=== PATIENT | male | born 1950 | race American Indian/Alaskan Native ===

== ENCOUNTER 2020-03-27 22:19 | Emergency (ER) | payer SELFPAY ==
[2020-03-27] MEDS ORDERED: Acetaminophen/HYDROcodone 325-10 MG Tab PO ONE ×2 (22:20→22:43)
--- NOTE | 2020-03-27 22:30 | EDM.PDOC ---
ED [facility] GENERAL MEDICAL PROBLEM - General Chief Complaint: Lower Extremity Injury/Pain Stated Complaint: RT LEG/KNEE PAIN Time Seen by Provider: 03/27/20 22:27 Source of Information: Reports: Patient History Limitations: Reports: No Limitations - History of Present Illness INITIAL COMMENTS - FREE TEXT/NARRATIVE: fell onto right knee tonight Right Knee Pain Score (Numeric/FACES): 7 Left Shoulder Pain Score (Numeric/FACES): 7 - Related Data Allergies Allergy/AdvReac Type Severity Reaction Status Date / Time amoxicillin [From Augmentin] Allergy Diarrhea Verified 03/27/20 22:27 cephalexin [From Keflex] Allergy Itching Verified 03/27/20 22:27 clavulanic acid Allergy Diarrhea Verified 03/27/20 22:27 [From Augmentin] vancomycin Allergy Anaphylactic Verified 03/27/20 22:27 Shock Home Meds: Home Meds . [Unable to Verify Home Med List] 03/27/20 [History] Review of Systems - Review of Systems Review Of Systems: Comprehensive ROS is negative, except as noted in HPI. ED EXAM, GENERAL - Physical Exam Exam: See Below Exam Limited By: No Limitations General Appearance: Alert, WD/WN, Mild Distress, Other (pain) Ears: Hearing Grossly Normal Throat/Mouth: Normal Voice, No Airway Compromise Head: Atraumatic Neck: Non-Tender, Full Range of Motion Respiratory/Chest: No Respiratory Distress Cardiovascular: Regular Rate, Rhythm GI/Abdominal: Soft, Non-Tender Extremities: Other (left shoulder unable to abduct, right knee swollen unable ex tend) Neurological: Alert, Oriented, Normal Cognition, No Motor/Sensory Deficits Psychiatric: Tearful Skin Exam: Warm, Dry, Normal Color Lymphatic: No Adenopathy Course - Vital Signs Last Recorded V/S: Last Vital Signs Temp 36.0 C L 03/27/20 22:36 Pulse 88 03/27/20 22:36 Resp 18 03/27/20 22:36 BP 167/79 H 03/27/20 22:36 Pulse Ox 98 03/27/20 22:36 - Orders/Labs/Meds Meds: Medications Discontinued Medications Generic Name Dose Route Start Last Admin Trade Name Freq PRN Reason Stop Dose Admin Hydrocodone Bitart/Acetaminophen 1 tab 03/27/20 22:43 03/27/20 22:52 [place] 325-10 Mg PO 07/17/20 22:44 1 tab ONETIME ONE Administration - Re-Assessments/Exams Free Text/Narrative Re-Assessment/Exam: 03/27/20 23:38 results discussed with pt Departure - Departure Time of Disposition: 23:39 Disposition: Home, Self-Care 01 Condition: Good Clinical Impression: Patellar fracture Qualifiers: Encounter type: initial encounter Fracture type: closed Fracture morphology: comminuted Fracture alignment: nondisplaced Laterality: right Qualified Code(s): S82.044A - Nondisplaced comminuted fracture of right patella, initial encounter for closed fracture - Discharge Information Instructions: Patellar Fracture, Adult Forms: ED Department Discharge Additional Instructions: 1) wear knee brace and use crutches 2) see clinic Monday for ORTHOPEDIC REFERRAL for fracture patella 3) elevate leg as much as possible rx given vicodin tid to qid prn x 12 Sepsis Event Note (ED) - Focused Exam Vital Signs: Vital Signs Temp Pulse Resp BP Pulse Ox 03/27/20 22:36 36.0 C L 88 18 167/79 H 98
--- NOTE | 2020-03-27 23:17 | CR ---
PROCEDURE INFORMATION: Exam: XR Left Shoulder Exam date and time: 03/27/2020 11:08 PM Age: 69 years old Clinical indication: Other: Fall/pain; Additional info: Fell onto it TECHNIQUE: Imaging protocol: XR Left shoulder. Views: 2 or more views. COMPARISON: No relevant prior studies available. FINDINGS: Bones/joints: No acute fracture or dislocation. There is mild acromioclavicular arthropathy. Soft tissues: Normal. IMPRESSION: No acute fracture or dislocation.
--- NOTE | 2020-03-27 23:19 | CR ---
PROCEDURE INFORMATION: Exam: XR Right Knee Exam date and time: 03/27/2020 11:02 PM Age: 69 years old Clinical indication: Other: Fall/pain; Additional info: Fell onto right knee TECHNIQUE: Imaging protocol: XR Right knee. Views: 3 views. COMPARISON: No relevant prior studies available. FINDINGS: Bones/joints: Suspect a nondisplaced patellar fracture. Severe tricompartmental degenerative joint disease. Soft tissues: Anterior soft tissue swelling. IMPRESSION: 1. Suspect a nondisplaced patellar fracture. 2. Severe tricompartmental degenerative joint disease.
[2020-03-27] MEDS ORDERED: Acetaminophen/HYDROcodone 325-10 MG Tab ONE (23:55)
== END 2020-03-28 00:10 | disposition home or self-care (01) ==
LOC: DL.ED 22:19
DX: S82.044A Nondisplaced comminuted fracture of right patella, initial encounter for closed fracture (principal); Z88.1 Allergy status to other antibiotic agents; W18.30XA Fall on same level, unspecified, initial encounter
CPT/HCPCS: 73030; 73562; 99283; A9270

== ENCOUNTER 2021-08-25 07:28 | Day surgery (SDC) | payer SELFPAY ==
[2021-08-25] MEDS ORDERED: Sodium Chloride 0.9% 10 ML Syringe IV ONE (07:29)
[2021-08-25] MEDS ORDERED: Dexamethasone 4 MG/ML SDV IV ONE (07:29)
[2021-08-25] MEDS ORDERED: Midazolam 1 MG/ML 2 ML SDV IV ONE (07:29)
[2021-08-25] MEDS ORDERED: Tobramycin 0.3% Ophth Drops 5 ML Bottle EYELF ONE (07:30)
[2021-08-25] MEDS ORDERED: Phenylephrine 10% Ophth Soln 5 ML Bot EYELF PRN (07:30)
[2021-08-25] MEDS ORDERED: Sodium Chloride 0.9% 10 ML Syringe FLUSH PRN (07:30)
[2021-08-25] MEDS ORDERED: Acetaminophen 325 MG Tab PO PRN (07:30)
[2021-08-25] MEDS ORDERED: Moxifloxacin 0.5% Ophth Soln 3 ML Bottle EYELF ONE (07:30)
[2021-08-25] MEDS ORDERED: Povidone-Iodine 5% Sterile Ophth Soln 30 ML Bottle EYELF ONE ×2 (07:30→09:03)
[2021-08-25] MEDS ORDERED: Acetaminophen/Codeine 300-30 MG Tab PO PRN (07:30)
[2021-08-25] MEDS ORDERED: Tropicamide 1% Ophth Soln 15 ML Bottle EYELF ONE (07:30)
[2021-08-25] MEDS ORDERED: Proparacaine 0.5% Ophth Soln 15 ML Bottle EYELF ONE (07:30)
[2021-08-25] MEDS ORDERED: Timolol Maleate 0.5% Ophth Soln 5 ML Bottle EYELF ONE (07:30)
[2021-08-25] MEDS ORDERED: Ondansetron 4 MG/2 ML SDV IVPUSH PRN (07:30)
[2021-08-25] MEDS ORDERED: Cataract Ophth Solution EYELF ONE (07:30)
[2021-08-25] MEDS ORDERED: Lidocaine 1% 30 ML SDV ONE (09:01)
[2021-08-25] MEDS ORDERED: Tetracaine HCl/PF 0.5% 4 ML Bottle EYELF ONE (09:01)
[2021-08-25] MEDS ORDERED: Apraclonidine 0.5% Ophth Soln 5 ML Bot EYELF ONE (09:03)
[2021-08-25] MEDS ORDERED: Dexamethasone/Neomycin/Polymyxin B Ophth Oint 3.5 GM Tube EYELF ONE (09:04)
[2021-08-25] MEDS ORDERED: Diclofenac Sodium 0.1% Ophth Soln 5 ML Bottle EYELF ONE (09:04)
[2021-08-25] MEDS ORDERED: Chondroitin Sulfate/Hyaluronate Sodium Ophth Inj 0.75 ML Syringe EYELF ONE (09:05)
[2021-08-25] MEDS ORDERED: Vancomycin 500 MG SDV EYELF ONE (09:05)
[2021-08-25] MEDS ORDERED: Balanced Salt Solution Ophth Irrig 500 ML Bottle IOCULAR ONE (09:05)
--- NOTE | 2021-08-26 08:39 | OR ---
DATE: 08/25/2021 PREOPERATIVE DIAGNOSIS: Visually significant mixed cataract, left eye. POSTOPERATIVE DIAGNOSIS: Visually significant mixed cataract, left eye. PROCEDURE: Extracapsular cataract extraction with intraocular lens implant, left eye. ANESTHESIA: Topical/local MAC. COMPLICATIONS: None. INDICATION: Mr. Gotti was seen in the clinic. He is unhappy with his vision noticing a progressive change. He has difficulty with multiple activities of daily living. 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 Dr. Duval was not able to improve his vision and meet his needs with a change in glasses. I explained options, offered cataract surgery, and I explained risks including the potential for infection, retinal detachment, loss of vision, need for additional surgery, amongst others. We have discussed implant options. He has requested a monofocal implant. He has significant preexisting astigmatism and understands that his visual potential will likely be limited without glasses. He voiced understanding with respect to risks and is motivated to proceed. OPERATIVE DESCRIPTION: After informed consent was obtained and the risks, benefits, and alternatives were explained, the patient was brought to the operative suite and topical anesthesia was administered. The patient was then prepped and draped in the sterile fashion and attention was placed on the left eye. A sterile lid speculum was placed into the left eye to allow operative exposure. A full-thickness paracentesis was made in the temporal portion of the operative eye. Preservative-free lidocaine 0.1 mL was injected into the anterior chamber followed by viscoelastic. A full-thickness corneal incision was then made into the anterior chamber. A bent needle cystotome was used to create a small ofelia in the anterior capsule. The capsulorrhexis forceps was then used to create a 360-degree curvilinear capsulorrhexis. The nucleus was then removed using a phacoemulsification handpiece and the remaining cortical material was then removed with irrigation and aspiration handpiece. Following removal of the cortical material, the capsular bag was then inspected and noted to be free of any holes or tears. Viscoelastic was then injected into the capsular bag and the intraocular lens was inserted into the capsular bag. The viscoelastic material was then removed from both the anterior and posterior chambers and from behind the IOL. The lens and capsular bag were then reinspected. The IOL was well centered and the capsular bag intact. The wound and paracentesis sites were inspected and hydrated with balanced saline solution. Both were found to be self- sealing. The intraocular pressure was assessed digitally and found to be within normal range. A good red reflex was noted at the completion of the procedure. No complications occurred during the operation. At the completion of the procedure, Maxitrol, Voltaren, and Iopidine drops were placed into the operative eye. A sterile eye shield was placed over the operative eye and the patient was transported to the postoperative recovery area having tolerated the procedure well. Postoperative instructions were given along with a postoperative appointment. The patient was advised to call with any questions or concerns. [facility] /[id number]
== END 2021-08-25 10:17 | disposition home or self-care (01) ==
LOC: DL.SDS 07:28
PROVIDERS: ATTEND Ophthalmology
DX: E11.36 Type 2 diabetes mellitus with diabetic cataract (principal); E11.22 Type 2 diabetes mellitus with diabetic chronic kidney disease; E11.319 Type 2 diabetes mellitus with unspecified diabetic retinopathy without macular edema; I12.9 Hypertensive chronic kidney disease with stage 1 through stage 4 chronic kidney disease, or unspecified chronic kidney disease; H26.8 Other specified cataract; N18.9 Chronic kidney disease, unspecified; E55.9 Vitamin D deficiency, unspecified; E66.01 Morbid (severe) obesity due to excess calories; Z79.4 Long term (current) use of insulin; Z68.38 Body mass index [BMI] 38.0-38.9, adult; Z79.899 Other long term (current) drug therapy; Z20.822 Contact with and (suspected) exposure to COVID-19
CPT/HCPCS: 82947; A9270-GY; C1780; J1100; J2250; J3370; U0002

== ENCOUNTER 2021-09-01 07:01 | Day surgery (SDC) | payer SELFPAY ==
[~2021-09-01 07:01] MED LIST: Acetaminophen 325 MG Tab PO PRN; Acetaminophen/Codeine 300-30 MG Tab PO PRN; Cataract Ophth Solution EYERT ONE; Moxifloxacin 0.5% Ophth Soln 3 ML Bottle EYERT ONE; Ondansetron 4 MG/2 ML SDV IVPUSH PRN; Phenylephrine 10% Ophth Soln 5 ML Bot EYERT PRN; Povidone-Iodine 5% Sterile Ophth Soln 30 ML Bottle EYERT ONE; Proparacaine 0.5% Ophth Soln 15 ML Bottle EYERT ONE; Timolol Maleate 0.5% Ophth Soln 5 ML Bottle EYERT ONE; Tobramycin 0.3% Ophth Drops 5 ML Bottle EYELF SCH; Tropicamide 1% Ophth Soln 15 ML Bottle EYERT ONE
[2021-09-01] MEDS ORDERED: Midazolam 1 MG/ML 2 ML SDV IV ONE (07:02)
[2021-09-01] MEDS ORDERED: Sodium Chloride 0.9% 10 ML Syringe IV ONE (07:02)
[2021-09-01] MEDS ORDERED: Dexamethasone 4 MG/ML SDV IV ONE (07:02)
[2021-09-01] MEDS ORDERED: Tetracaine HCl/PF 0.5% 4 ML Bottle EYERT ONE (08:24)
[2021-09-01] MEDS ORDERED: Lidocaine 1% 30 ML SDV ONE (08:25)
[2021-09-01] MEDS ORDERED: Povidone-Iodine 5% Sterile Ophth Soln 30 ML Bottle EYERT ONE (08:25)
[2021-09-01] MEDS ORDERED: Apraclonidine 0.5% Ophth Soln 5 ML Bot EYERT ONE (08:27)
[2021-09-01] MEDS ORDERED: Diclofenac Sodium 0.1% Ophth Soln 5 ML Bottle EYERT ONE (08:27)
[2021-09-01] MEDS ORDERED: Dexamethasone/Neomycin/Polymyxin B Ophth Oint 3.5 GM Tube EYERT ONE (08:28)
[2021-09-01] MEDS ORDERED: Vancomycin 500 MG SDV EYERT ONE (08:29)
[2021-09-01] MEDS ORDERED: Balanced Salt Solution Ophth Irrig 500 ML Bottle IOCULAR ONE (08:29)
[2021-09-01] MEDS ORDERED: Chondroitin Sulfate/Hyaluronate Sodium Ophth Inj 0.75 ML Syringe EYERT ONE (08:29)
--- NOTE | 2021-09-01 11:32 | OR ---
DATE: 09/01/2021 PREOPERATIVE DIAGNOSIS: Visually significant mixed cataract, right eye. POSTOPERATIVE DIAGNOSIS: Visually significant mixed cataract, right eye. PROCEDURE: Extracapsular cataract extraction with intraocular lens implant, right eye. ANESTHESIA: Topical/local MAC. COMPLICATIONS: None. INDICATION: Mr. Gotti was seen in the clinic. He is unhappy with his vision noticing a progressive change. He has difficulty with multiple activities of daily living. Difficulty with bright lights and glare, difficulty with light sensitivity, difficulty with near and distance vision. He saw Dr. Duval. Dr. Duval was not able to improve his vision or meet his visual needs with a change in glasses. I have explained the options, offered cataract surgery, and I explained risks including the potential for infection; retinal detachment; loss of vision; need for additional surgery amongst others. We have discussed implant options. He has requested a monofocal implant. He is comfortable wearing glasses following surgery if necessary. OPERATIVE DESCRIPTION: After informed consent was obtained and the risks, benefits, and alternatives were explained, the patient was brought to the operative suite and topical anesthesia was administered. The patient was then prepped and draped in the sterile fashion and attention was placed on the right eye. A sterile lid speculum was placed into the right eye to allow operative exposure. A full-thickness paracentesis was made in the temporal portion of the operative eye. Preservative-free lidocaine 0.1 mL was injected into the anterior chamber followed by viscoelastic. A full-thickness corneal incision was then made into the anterior chamber. A bent needle cystotome was used to create a small ofelia in the anterior capsule. The capsulorrhexis forceps was then used to create a 360-degree curvilinear capsulorrhexis. The nucleus was then removed using a phacoemulsification handpiece and the remaining cortical material was then removed with irrigation and aspiration handpiece. Following removal of the cortical material, the capsular bag was then inspected and noted to be free of any holes or tears. Viscoelastic was then injected into the capsular bag and the intraocular lens was inserted into the capsular bag. The viscoelastic material was then removed from both the anterior and posterior chambers and from behind the IOL. The lens and capsular bag were then reinspected. The IOL was well centered and the capsular bag intact. The wound and paracentesis sites were inspected and hydrated with balanced saline solution. Both were found to be self- sealing. The intraocular pressure was assessed digitally and found to be within normal range. A good red reflex was noted at the completion of the procedure. No complications occurred during the operation. At the completion of the procedure, Maxitrol, Voltaren, and Iopidine drops were placed into the operative eye. A sterile eye shield was placed over the operative eye and the patient was transported to the postoperative recovery area having tolerated the procedure well. Postoperative instructions were given along with a postoperative appointment. The patient was advised to call with any questions or concerns. [facility] /[id number]
== END 2021-09-01 09:55 | disposition home or self-care (01) ==
LOC: DL.SDS 07:01
PROVIDERS: ATTEND Ophthalmology
DX: E11.36 Type 2 diabetes mellitus with diabetic cataract (principal); H26.8 Other specified cataract; E11.22 Type 2 diabetes mellitus with diabetic chronic kidney disease; I12.9 Hypertensive chronic kidney disease with stage 1 through stage 4 chronic kidney disease, or unspecified chronic kidney disease; E78.5 Hyperlipidemia, unspecified; N18.9 Chronic kidney disease, unspecified; E03.9 Hypothyroidism, unspecified; E55.9 Vitamin D deficiency, unspecified; E66.9 Obesity, unspecified; Z68.38 Body mass index [BMI] 38.0-38.9, adult
CPT/HCPCS: 00142; A9270-GY; J1100; J2250; J3370; V2632

== ENCOUNTER 2022-08-01 16:34 | Emergency (ER) | payer MEDICAID, MEDICARE ==
[2022-08-01 19:04] LABS: ANION GAP 14.6 mEq/L (7-13)
[2022-08-01] MEDS ORDERED: Sodium Chloride 0.9% 1,000 ML IV ONE ×2 (20:05→23:43)
[2022-08-01] MEDS ORDERED: DAPTOmycin 1,000 MG in Sodium Chloride 0.9% 50 ML IV ONE (22:09)
== END 2022-08-01 23:35 | disposition home or self-care (01) ==
LOC: DL.ED 16:34
DX: M86.08 Acute hematogenous osteomyelitis, other sites (principal); E78.00 Pure hypercholesterolemia, unspecified; I10 Essential (primary) hypertension; E11.9 Type 2 diabetes mellitus without complications; E66.9 Obesity, unspecified; Z68.39 Body mass index [BMI] 39.0-39.9, adult; Z88.1 Allergy status to other antibiotic agents; Z79.899 Other long term (current) drug therapy; Z79.82 Long term (current) use of aspirin; Z79.4 Long term (current) use of insulin
CPT/HCPCS: 36415; 73660; 80053; 83605; 85025; 87040; 96361; 96365; 99283; J0878; J7030

== ENCOUNTER 2022-08-06 03:21 | Emergency (ER) | payer MEDICARE ==
[2022-08-06 04:46] LABS: PTT,PARTIAL THROMBOPLSTIN TIME 26.1 SEC (22.0-34.0)
[2022-08-06 04:58] LABS: ANION GAP 15.2 mEq/L (7-13); CHLORIDE,CL 106 mmol/L (98-107); SODIUM,NA 139 mmol/L (136-145)
[2022-08-06 05:02] LABS: ESTIMATED GFR 20 mL/min (>=60)
[2022-08-06] MEDS ORDERED: Sodium Chloride 0.9% 500 ML IV ONE (06:15)
[2022-08-06 06:35] LABS: AMPHETAMINES,URINE NEGATIVE (NEGATIVE); BARBITURATES,URINE NEGATIVE (NEGATIVE); BENZODIAZEPINE,URINE NEGATIVE (NEGATIVE); MDMA (ECSTASY), URINE NEGATIVE (NEGATIVE); METHADONE,URINE NEGATIVE (NEGATIVE); METHAMPHETAMINES,URINE NEGATIVE (NEGATIVE); OPIATES,URINE NEGATIVE (NEGATIVE); OXYCODONE,URINE NEGATIVE (NEGATIVE); PHENCYCLIDINE,URINE NEGATIVE (NEGATIVE); TCA,URINE NEGATIVE (NEGATIVE)
== END 2022-08-06 07:47 | disposition home or self-care (01) ==
LOC: DL.ED 03:21
DX: I12.9 Hypertensive chronic kidney disease with stage 1 through stage 4 chronic kidney disease, or unspecified chronic kidney disease (principal); N18.4 Chronic kidney disease, stage 4 (severe); E78.00 Pure hypercholesterolemia, unspecified; E11.9 Type 2 diabetes mellitus without complications; T36.8X5A Adverse effect of other systemic antibiotics, initial encounter; E66.9 Obesity, unspecified; Z68.38 Body mass index [BMI] 38.0-38.9, adult; Z88.1 Allergy status to other antibiotic agents; Z88.0 Allergy status to penicillin; Z79.899 Other long term (current) drug therapy; Z79.82 Long term (current) use of aspirin; Z79.4 Long term (current) use of insulin
CPT/HCPCS: 36415; 80053; 80305; 80307; 81001; 82272; 82607; 83605; 83735; 84443; 85025; 85610; 85730; 86140; 93005; 96360; 99285; J7030

== ENCOUNTER 2024-09-28 21:45 | Inpatient (IN) | payer MEDICARE, MEDICAID ==
[2024-09-28 23:04] LABS: A/G RATIO 0.75; ALBUMIN 3.3 g/dL (3.4-5.0); ANION GAP 18.3 mEq/L (7-13); BILIRUBIN TOTAL 0.5 mg/dL (0.2-1.0); CALCIUM 8.4 mg/dL (8.5-10.1); CREATININE 2.88 mg/dL (0.70-1.30); EST CRCL DRUG DOSING (CG) 28.09 mL/min; MAGNESIUM 1.4 mg/dL (1.8-2.4); POTASSIUM,K 5.3 mmol/L (3.5-5.1); PROTEIN TOTAL,TP 7.7 g/dL (6.4-8.2)
[2024-09-28 23:14] LABS: PROTHROMBIN TIME 10.4 SEC (9.0-12.0); PTT,PARTIAL THROMBOPLSTIN TIME 19.4 SEC (22.0-34.0)
[2024-09-28] MEDS: Sodium Chloride 0.9% 1,000 ML IV ONE (23:15)
[2024-09-28] MEDS: Magnesium Sulfate/Water Premix 2 GM in Premix Bag 1 BAG IV ONE (23:15)
[2024-09-28 23:18] LABS: BASOPHILS PERCENT AUTO 0.2 % (0.0-1.0); EOSINOPHILS PERCENT AUTO 2.7 % (1.0-3.0); HEMATOCRIT 37.9 % (40.0-54.0); LYMPHOCYTES PERCENT AUTO 6.6 % (20.5-50.1); MEAN CORPUSCULAR HEMOGLOBIN 28.5 pg (27.0-34.0); MEAN CORPUSCULAR HGB CONC 31.7 g/dL (33.0-35.0); MONOCYTES PERCENT AUTO 8.4 % (2-8); NEUTROPHILS PERCENT AUTO 82.1 % (42.2-75.2); PLATELET COUNT,PLT 122 10^3/uL (150-450); RED BLOOD CELL COUNT 4.21 10^6/uL (4.6-6.2)
[2024-09-29] MEDS: Levofloxacin/Dextrose 5%-Water 500 MG in Premix Bag 1 BAG IV ONE (01:19)
[2024-09-29] MEDS ORDERED: Metoprolol Tartrate 5 MG/5 ML SDV IVPUSH PRN (01:45)
[2024-09-29] MEDS ORDERED: hydrALAZINE 20 MG/ML SDV IVPUSH PRN (01:45)
[2024-09-29] MEDS ORDERED: Naloxone 2 MG/2 ML Syringe IVPUSH PRN (01:46)
[2024-09-29] MEDS ORDERED: Sennosides/Docusate Sodium 50-8.6 MG Tab PO PRN (01:46)
[2024-09-29] MEDS ORDERED: HYDROmorphone 1 MG/ML Syringe IVPUSH PRN (01:46)
[2024-09-29] MEDS ORDERED: Magnesium Hydroxide 400 MG/5 ML Susp 30 ML Cup PO PRN (01:46)
[2024-09-29] MEDS ORDERED: Albuterol/Ipratropium 3.0-0.5 MG/3 ML Neb Soln NEB PRN (01:46)
[2024-09-29] MEDS ORDERED: Acetaminophen 325 MG Tab PO PRN ×2 (01:46→02:34)
[2024-09-29] MEDS ORDERED: Ondansetron 4 MG/2 ML SDV IVPUSH PRN (01:46)
[2024-09-29] MEDS ORDERED: Polyethylene Glycol 3350 Powder 17 GM Packet PO PRN (01:46)
[2024-09-29] MEDS ORDERED: Acetaminophen/oxyCODONE 325-5 MG Tab PO PRN (01:46)
[2024-09-29] MEDS ORDERED: Melatonin 3 MG Tab PO PRN (01:46)
[2024-09-29] MEDS ORDERED: guaiFENesin/Dextromethorphan 100-10 MG/5 ML Soln 5 ML Cup PO PRN (01:54)
[2024-09-29] MEDS ORDERED: Glucagon,Human Recombinant 1 MG Vial IM PRN (01:55)
[2024-09-29] MEDS ORDERED: 50% Dextrose in Water 50 ML Syringe IVPUSH PRN (01:55)
[2024-09-29 02:14] LABS: LACTIC ACID 1.7 mmol/L (0.4-2.0)
[2024-09-29] MEDS ORDERED: traMADol 50 MG Tab PO PRN ×2 (02:18→03:17)
[2024-09-29 02:19] LABS: C-REACTIVE PROTEIN 3.28 ng/dL (<=0.50)
[2024-09-29] MEDS: Sodium Chloride 0.9% 1,000 ML IV SCH (02:43)
[2024-09-29] MEDS: Dexamethasone 4 MG/ML SDV IVPUSH ONE (02:46)
[2024-09-29] MEDS: diphenhydrAMINE 50 MG/ML SDV IVPUSH ONE (02:47)
[2024-09-29] MEDS: Famotidine 20 MG/2 ML SDV IVPUSH ONE (02:47)
[2024-09-29 02:51] LABS: CORONAVIRUS COVID-19 NAA NEGATIVE (NEGATIVE); INFLUENZA A NAA NEGATIVE (NEGATIVE); INFLUENZA B NAA NEGATIVE (NEGATIVE)
[2024-09-29] MEDS: VANCOmycin 2 GM in Sodium Chloride 0.9% 500 ML IV ONE (03:56)
[2024-09-29] MEDS: Heparin Sodium 5,000 Units/ML Vial SUBCUT SCH (05:48)
[2024-09-29] MEDS: Levothyroxine 50 MCG Tab PO SCH (05:48)
[2024-09-29] MEDS ORDERED: Ampicillin/Sulbactam Na 1.5 GM in Sodium Chloride 0.9% 100 ML IV SCH (06:00)
[2024-09-29 06:28] LABS: APPEARANCE,URINE CLEAR (CLEAR); BILIRUBIN,URINE NEGATIVE (NEGATIVE); COLOR,URINE YELLOW (YELLOW); GLUCOSE,URINE NEGATIVE (NEGATIVE); KETONES,URINE NEGATIVE (NEGATIVE); LEUKOCYTE ESTERASE,URINE NEGATIVE (NEGATIVE); NITRITE,URINE NEGATIVE (NEGATIVE); OCCULT BLOOD,URINE TRACE-INTACT (NEGATIVE); PH,URINE 5.5 (5.0-9.0); PROTEIN,URINE 100 (NEGATIVE); UROBILINOGEN,URINE 0.2 mg/dL (0.2-1.0)
[2024-09-29 06:37] LABS: BACTERIA,URINE FEW /HPF (0-FEW/HPF); EPITHELIAL CELLS,URINE FEW /HPF (NOT SEEN); MUCUS,URINE FEW /LPF (NOT SEEN); WBC,URINE 0-5 /HPF (0-5/HPF)
[2024-09-29] MEDS: Sodium Polystyrene Sulfonate 15 GM/60 ML Susp 60 ML Bot PO ONE (08:39)
[2024-09-29] MEDS: Saccharomyces Boulardii (Probiotic) 250 MG Cap PO SCH (08:41)
[2024-09-29] MEDS: Metoprolol Succinate 50 MG Tab.ER PO SCH (08:42)
[2024-09-29] MEDS: Aspirin 81 MG Tab.Chew PO SCH (08:43)
[2024-09-29] MEDS: Ferrous Sulfate 325 MG Tab PO SCH (08:44)
[2024-09-29] MEDS: guaiFENesin 600 MG Tab.ER PO SCH (08:45)
[2024-09-29] MEDS: Ampicillin/Sulbactam Na 1.5 GM in Sodium Chloride 0.9% 100 ML IV SCH (08:47)
[2024-09-29] MEDS: Bacitracin/Neomycin/Polymyxin B Oint 28.4 GM Tube TOP SCH (08:49)
[2024-09-29] MEDS: Insulin Lispro 100 Units/ML 3 ML Vial SUBCUT SCH (08:51)
[2024-09-29] MEDS: Insulin Glarg,Human.Rec.Analog 100 Unit/ML 10 ML Vial SUBCUT SCH (08:52)
[2024-09-29] MEDS ORDERED: Insulin Glarg,Human.Rec.Analog 100 Unit/ML 10 ML Vial SUBCUT SCH (09:00)
[2024-09-29] MEDS: Doxazosin 2 MG Tab PO SCH (20:52)
[2024-09-30] MEDS: VANCOmycin 1 GM in Sodium Chloride 0.9% 250 ML IV SCH (04:26)
[2024-09-30 06:32] LABS: BASOPHILS PERCENT AUTO 0.3 % (0.0-1.0); EOSINOPHILS PERCENT AUTO 7.4 % (1.0-3.0); HEMATOCRIT 35.6 % (40.0-54.0); HEMOGLOBIN 11.2 g/dL (14.0-18.0); LYMPHOCYTES PERCENT AUTO 19.8 % (20.5-50.1); MEAN CORPUSCULAR HEMOGLOBIN 28.4 pg (27.0-34.0); MEAN CORPUSCULAR HGB CONC 31.5 g/dL (33.0-35.0); MEAN CORPUSCULAR VOLUME 90.4 fL (80-100); MONOCYTES PERCENT AUTO 8.8 % (2-8); NEUTROPHILS PERCENT AUTO 63.7 % (42.2-75.2); PLATELET COUNT,PLT 110 10^3/uL (150-450); RED BLOOD CELL COUNT 3.94 10^6/uL (4.6-6.2); WHITE BLOOD CELL COUNT,WBC 5.9 10^3/uL (5.0-10.0)
[2024-09-30 06:59] LABS: ALBUMIN 2.8 g/dL (3.4-5.0); ANION GAP 14.1 mEq/L (7-13); BILIRUBIN TOTAL 0.4 mg/dL (0.2-1.0); BUN/CREATININE RATIO 17.3 (No establ ref range); C-REACTIVE PROTEIN 6.6 ng/dL (<=0.50); CALCIUM 8.4 mg/dL (8.5-10.1); CREATININE 2.48 mg/dL (0.70-1.30); EST CRCL DRUG DOSING (CG) 32.18 mL/min; MAGNESIUM 1.9 mg/dL (1.8-2.4); POTASSIUM,K 5.1 mmol/L (3.5-5.1); PROTEIN TOTAL,TP 7.1 g/dL (6.4-8.2)
[2024-09-30 07:00] LABS: A/G RATIO 0.65
[2024-09-30] MEDS: Dexamethasone 2 MG Tab PO SCH (08:43)
[2024-09-30] MEDS: Famotidine 20 MG Tab PO SCH (08:44)
[2024-09-30] MEDS: Metoprolol Succinate 50 MG Tab.ER PO SCH (08:46)
[2024-09-30] MEDS: Sodium Chloride 0.9% 10 ML Syringe FLUSH PRN (08:48)
[2024-10-01 06:28] LABS: HEMATOCRIT 34.3 % (40.0-54.0); HEMOGLOBIN 10.8 g/dL (14.0-18.0); MEAN CORPUSCULAR HEMOGLOBIN 28.2 pg (27.0-34.0); MEAN CORPUSCULAR HGB CONC 31.5 g/dL (33.0-35.0); MEAN CORPUSCULAR VOLUME 89.6 fL (80-100); PLATELET COUNT,PLT 117 10^3/uL (150-450); RED BLOOD CELL COUNT 3.83 10^6/uL (4.6-6.2); WHITE BLOOD CELL COUNT,WBC 4.9 10^3/uL (5.0-10.0)
[2024-10-01 06:46] LABS: BASOPHILS PERCENT AUTO 0.4 % (0.0-1.0); NEUTROPHILS PERCENT AUTO 58.6 % (42.2-75.2)
[2024-10-01 06:59] LABS: ALBUMIN 2.7 g/dL (3.4-5.0); ANION GAP 16.4 mEq/L (7-13); BILIRUBIN TOTAL 0.3 mg/dL (0.2-1.0); BUN/CREATININE RATIO 18.4 (No establ ref range); C-REACTIVE PROTEIN 3.8 ng/dL (<=0.50); CALCIUM 8.1 mg/dL (8.5-10.1); CREATININE 2.55 mg/dL (0.70-1.30); EST CRCL DRUG DOSING (CG) 31.3 mL/min; MAGNESIUM 1.8 mg/dL (1.8-2.4); POTASSIUM,K 4.4 mmol/L (3.5-5.1); PROTEIN TOTAL,TP 6.8 g/dL (6.4-8.2)
[2024-10-01 07:02] LABS: A/G RATIO 0.66; LYMPHOCYTES PERCENT MAN 15 % (20-50); SEG NEUTROPHILS PERCENT MAN 70 % (42-75)
[2024-10-01 07:03] LABS: EOSINOPHILS PERCENT MAN 6 % (1-3); MONOCYTES PERCENT MAN 9 % (2-8)
[2024-10-02] MEDS ORDERED: VANCOmycin 750 MG in Sodium Chloride 0.9% 250 ML IV SCH (04:00)
== END 2024-10-01 12:45 | disposition home or self-care (01) | DRG 194 ==
LOC: DL.ED 21:45 → DL.MS 09-29 01:12 → DL.ED 09-29 01:22
PROVIDERS: ADMIT Internal Medicine; ATTEND Internal Medicine
DX: J18.9 Pneumonia, unspecified organism (principal); I13.0 Hypertensive heart and chronic kidney disease with heart failure and stage 1 through stage 4 chronic kidney disease, or unspecified chronic kidney disease; E87.5 Hyperkalemia; D64.9 Anemia, unspecified; I12.9 Hypertensive chronic kidney disease with stage 1 through stage 4 chronic kidney disease, or unspecified chronic kidney disease; N18.4 Chronic kidney disease, stage 4 (severe); N17.9 Acute kidney failure, unspecified; E78.5 Hyperlipidemia, unspecified; E03.9 Hypothyroidism, unspecified; E11.22 Type 2 diabetes mellitus with diabetic chronic kidney disease; I50.9 Heart failure, unspecified; E63.1 Imbalance of constituents of food intake; Z88.0 Allergy status to penicillin; M19.90 Unspecified osteoarthritis, unspecified site; E11.51 Type 2 diabetes mellitus with diabetic peripheral angiopathy without gangrene; H26.9 Unspecified cataract; H40.9 Unspecified glaucoma; H54.7 Unspecified visual loss; E66.9 Obesity, unspecified; F15.90 Other stimulant use, unspecified, uncomplicated; I10 Essential (primary) hypertension; D50.9 Iron deficiency anemia, unspecified; D69.6 Thrombocytopenia, unspecified; W19.XXXA Unspecified fall, initial encounter; D63.1 Anemia in chronic kidney disease; E11.65 Type 2 diabetes mellitus with hyperglycemia; E83.42 Hypomagnesemia; E88.09 Other disorders of plasma-protein metabolism, not elsewhere classified; Z74.09 Other reduced mobility; E87.6 Hypokalemia; Z88.1 Allergy status to other antibiotic agents; Z88.8 Allergy status to other drugs, medicaments and biological substances; Z79.82 Long term (current) use of aspirin; Z79.2 Long term (current) use of antibiotics; Z79.4 Long term (current) use of insulin; Z79.1 Long term (current) use of non-steroidal anti-inflammatories (NSAID); Z79.899 Other long term (current) drug therapy; Z87.81 Personal history of (healed) traumatic fracture; Z68.39 Body mass index [BMI] 39.0-39.9, adult; Z98.890 Other specified postprocedural states; Z79.02 Long term (current) use of antithrombotics/antiplatelets
CPT/HCPCS: 0240U; 36415; 70450; 71250; 72125; 72128; 72131; 74176; 76770; 80053; 80202; 81001; 82306; 82947; 83036; 83605; 83735; 84145; 84484; 85025; 85610; 85730; 86140; 87040; 87070; 87205; 93005; 93010; 93306; 96361; 96365; 97161-GP; 97165-GO; 99223; 99232; 99238; 99285; 99285-25; A9270-GY; J0295; J1100; J1200; J1644; J1815-GY; J1956; J3475; J3490; J7030; J7040; J7050; J8540

== ENCOUNTER 2024-12-05 14:21 | Emergency (ER) | payer MEDICARE, MEDICAID ==
[2024-12-05 15:22] LABS: HEMATOCRIT 37.8 % (40.0-54.0); MEAN CORPUSCULAR HEMOGLOBIN 28.2 pg (27.0-34.0); MEAN CORPUSCULAR HGB CONC 31.7 g/dL (33.0-35.0); MEAN CORPUSCULAR VOLUME 88.9 fL (80-100); PLATELET COUNT,PLT 118 10^3/uL (150-450); RED BLOOD CELL COUNT 4.25 10^6/uL (4.6-6.2); WHITE BLOOD CELL COUNT,WBC 4.4 10^3/uL (5.0-10.0)
[2024-12-05 15:30] LABS: BASOPHILS PERCENT AUTO 0.7 % (0.0-1.0); EOSINOPHILS PERCENT AUTO 20.1 % (1.0-3.0); LYMPHOCYTES PERCENT AUTO 20.3 % (20.5-50.1); MONOCYTES PERCENT AUTO 9.5 % (2-8); NEUTROPHILS PERCENT AUTO 49.4 % (42.2-75.2)
[2024-12-05 15:37] LABS: EOSINOPHILS PERCENT MAN 18 % (1-3); LYMPHOCYTES PERCENT MAN 22 % (20-50); MONOCYTES PERCENT MAN 10 % (2-8); SEG NEUTROPHILS PERCENT MAN 50 % (42-75)
[2024-12-05 15:41] LABS: ANION GAP 16.7 mEq/L (7-13); BLOOD UREA NITROGEN,BUN 53 mg/dL (7-18); C-REACTIVE PROTEIN < 0.50 ng/dL (<=0.50); CALCIUM 8.7 mg/dL (8.5-10.1); CARBON DIOXIDE,CO2 21 mmol/L (21-32); CHLORIDE,CL 106 mmol/L (98-107); CREATININE 2.84 mg/dL (0.70-1.30); EST CRCL DRUG DOSING (CG) 28.87 mL/min; ESTIMATED GFR 23 mL/min (>=60); GLUCOSE RANDOM 248 mg/dL (70-99); POTASSIUM,K 4.7 mmol/L (3.5-5.1); SODIUM,NA 139 mmol/L (136-145)
[2024-12-05 15:43] LABS: B-TYPE NATRIURETIC PEPTIDE,BNP 42 pg/ml (0-100)
[2024-12-05] MEDS: Furosemide 40 MG/4 ML VIAL IVPUSH ONE (16:43)
[2024-12-05] MEDS: Doxycycline Monohydrate 100 MG Cap PO ONE (16:43)
== END 2024-12-05 16:57 | disposition home or self-care (01) ==
LOC: DL.ED 14:21
DX: L03.116 Cellulitis of left lower limb (principal); R60.9 Edema, unspecified; I10 Essential (primary) hypertension; E78.00 Pure hypercholesterolemia, unspecified; E66.9 Obesity, unspecified; E11.9 Type 2 diabetes mellitus without complications; Z68.39 Body mass index [BMI] 39.0-39.9, adult; Z88.0 Allergy status to penicillin; Z88.1 Allergy status to other antibiotic agents; Z88.8 Allergy status to other drugs, medicaments and biological substances; Z79.82 Long term (current) use of aspirin; Z79.4 Long term (current) use of insulin; Z79.890 Hormone replacement therapy; Z79.899 Other long term (current) drug therapy
CPT/HCPCS: 36415; 80048; 83880; 85025; 86140; 93970; 96374; 99284; A9270; J1940

== ENCOUNTER 2025-01-15 09:25 | Emergency (ER) | payer MEDICARE, MEDICAID ==
[2025-01-15] MEDS: Triamcinolone Acetonide 0.1% Oint 15 GM Tube TOP ONE (12:27)
== END 2025-01-15 13:58 | disposition home or self-care (01) ==
LOC: DL.ED 09:25
DX: S91.115A Laceration without foreign body of left lesser toe(s) without damage to nail, initial encounter (principal); I87.2 Venous insufficiency (chronic) (peripheral); I10 Essential (primary) hypertension; E78.00 Pure hypercholesterolemia, unspecified; E11.9 Type 2 diabetes mellitus without complications; E66.9 Obesity, unspecified; Z68.41 Body mass index [BMI] 40.0-44.9, adult; Z88.1 Allergy status to other antibiotic agents; Z88.8 Allergy status to other drugs, medicaments and biological substances; Z79.82 Long term (current) use of aspirin; Z79.4 Long term (current) use of insulin; Z79.890 Hormone replacement therapy; Z79.899 Other long term (current) drug therapy; W18.40XA Slipping, tripping and stumbling without falling, unspecified, initial encounter; W23.0XXA Caught, crushed, jammed, or pinched between moving objects, initial encounter; Y92.000 Kitchen of unspecified non-institutional (private) residence as the place of occurrence of the external cause
CPT/HCPCS: 73620; 97165; 99283; 99284; A9270

== ENCOUNTER 2025-02-14 22:22 | Emergency (ER) | payer MEDICARE, MEDICAID ==
[2025-02-14] MEDS ORDERED: Sodium Chloride 0.9% 10 ML Syringe FLUSH PRN (23:02)
[2025-02-14] MEDS: Acetaminophen 500 MG Tab PO ONE (23:14)
[2025-02-14] MEDS: Lactated Ringers 1,000 ML IV ONE (23:18)
[2025-02-14 23:20] LABS: BASOPHILS PERCENT AUTO 0.1 % (0.0-1.0); EOSINOPHILS PERCENT AUTO 8.8 % (1.0-3.0); HEMATOCRIT 39.9 % (40.0-54.0); LYMPHOCYTES PERCENT AUTO 11.5 % (20.5-50.1); MEAN CORPUSCULAR HGB CONC 32.6 g/dL (33.0-35.0); MEAN CORPUSCULAR VOLUME 89.1 fL (80-100); MONOCYTES PERCENT AUTO 5.3 % (2-8); NEUTROPHILS PERCENT AUTO 74.3 % (42.2-75.2); PLATELET COUNT,PLT 117 10^3/uL (150-450); RED BLOOD CELL COUNT 4.48 10^6/uL (4.6-6.2); WHITE BLOOD CELL COUNT,WBC 9.3 10^3/uL (5.0-10.0)
[2025-02-15 00:08] LABS: APPEARANCE,URINE CLEAR (CLEAR); BILIRUBIN,URINE NEGATIVE (NEGATIVE); COLOR,URINE YELLOW (YELLOW); GLUCOSE,URINE NEGATIVE (NEGATIVE); KETONES,URINE NEGATIVE (NEGATIVE); LEUKOCYTE ESTERASE,URINE NEGATIVE (NEGATIVE); NITRITE,URINE NEGATIVE (NEGATIVE); OCCULT BLOOD,URINE SMALL (NEGATIVE); PH,URINE 5.5 (5.0-9.0); PROTEIN,URINE >=300 (NEGATIVE); UROBILINOGEN,URINE 0.2 mg/dL (0.2-1.0)
[2025-02-15 00:18] LABS: SODIUM,NA 140 mmol/L (138-146)
[2025-02-15 00:19] LABS: ANION GAP 11.5 mEq/L (7-13); CARBON DIOXIDE,CO2 14 mmol/L (23-30); CHLORIDE,CL 120 mmol/L (98-107); GLUCOSE RANDOM 175 mg/dL (74-100); POTASSIUM,K 5.5 mmol/L (3.5-4.5)
[2025-02-15 00:20] LABS: BLOOD UREA NITROGEN,BUN 59 mg/dL (8-26); CREATININE 3.71 mg/dL (0.51-1.19); EST CRCL DRUG DOSING (CG) 21.51 mL/min; ESTIMATED GFR 17 mL/min (>=60)
[2025-02-15 00:27] LABS: LACTIC ACID 2.5 mmol/L (0.56-1.39)
[2025-02-15 00:31] LABS: BACTERIA,URINE FEW /HPF (0-FEW/HPF); EPITHELIAL CELLS,URINE RARE /HPF (NOT SEEN); MUCUS,URINE MODERATE /LPF (NOT SEEN); WBC,URINE 0-5 /HPF (0-5/HPF)
[2025-02-15] MEDS: Lactated Ringers 1,000 ML IV SCH (00:40)
[2025-02-15] MEDS: cefTRIAXone 2 GM Vial IVPUSH ONE (00:49)
[2025-02-15] MEDS: Piperacillin/Tazobactam 2.25 GM in Sodium Chloride 0.9% 50 ML IV ONE (02:50)
[2025-02-15] MEDS: VANCOmycin 2 GM in Sodium Chloride 0.9% 500 ML IV ONE (03:26)
[2025-02-15] MEDS: DAPTOmycin 500 MG Vial IVPUSH SCH (04:12)
[2025-02-17 11:06] LABS: CALCIUM 1.19 mmol/l (1.15-1.33)
== END 2025-02-15 04:28 ==
LOC: DL.ED 22:22
DX: S92.515A Nondisplaced fracture of proximal phalanx of left lesser toe(s), initial encounter for closed fracture (principal); L03.116 Cellulitis of left lower limb; A41.9 Sepsis, unspecified organism; R65.20 Severe sepsis without septic shock; N17.9 Acute kidney failure, unspecified; M86.8X7 Other osteomyelitis, ankle and foot; G93.41 Metabolic encephalopathy; I12.9 Hypertensive chronic kidney disease with stage 1 through stage 4 chronic kidney disease, or unspecified chronic kidney disease; N18.4 Chronic kidney disease, stage 4 (severe); E78.00 Pure hypercholesterolemia, unspecified; E11.40 Type 2 diabetes mellitus with diabetic neuropathy, unspecified; E11.51 Type 2 diabetes mellitus with diabetic peripheral angiopathy without gangrene; E11.22 Type 2 diabetes mellitus with diabetic chronic kidney disease; Z88.1 Allergy status to other antibiotic agents; Z88.8 Allergy status to other drugs, medicaments and biological substances; Z79.82 Long term (current) use of aspirin; Z79.4 Long term (current) use of insulin; Z79.899 Other long term (current) drug therapy; X58.XXXA Exposure to other specified factors, initial encounter; Y93.89 Activity, other specified
CPT/HCPCS: 36415; 73630; 80048; 81001; 82947; 83605; 85025; 87040; 96361; 96365; 96375; 99285; A9270; J0696; J0878; J2543; J3490; J7120; 80053

== ENCOUNTER 2025-06-10 18:41 | Emergency (ER) | payer MEDICARE, MEDICAID ==
[2025-06-10] MEDS: Bacitracin Oint 1 GM U/D Packet TOP ONE (20:00)
== END 2025-06-10 20:00 | disposition home or self-care (01) ==
LOC: DL.ED 18:41
DX: S67.196A Crushing injury of right little finger, initial encounter (principal); E78.00 Pure hypercholesterolemia, unspecified; I10 Essential (primary) hypertension; E11.40 Type 2 diabetes mellitus with diabetic neuropathy, unspecified; Z88.1 Allergy status to other antibiotic agents; Z88.0 Allergy status to penicillin; Z88.8 Allergy status to other drugs, medicaments and biological substances; Z79.82 Long term (current) use of aspirin; Z79.899 Other long term (current) drug therapy; Z79.4 Long term (current) use of insulin; W23.1XXA Caught, crushed, jammed, or pinched between stationary objects, initial encounter; Y93.89 Activity, other specified
CPT/HCPCS: 12001; 73140; 99283; A9270; J2003; 99282